=== PATIENT | male | born 1965 | race Caucasian/White ===

== ENCOUNTER → 2016-09-02 15:12 | Emergency (ER) | payer BC ==
[~2016-09-02 15:12] MED LIST: Iohexol 300* (CONTRAST) 10 ML SDV IV ONE; NS 0.9% 1000 ML* 1,000 ML IV ONE
[2016-09-02 17:45] LABS: Hematocrit 45 % (42-52); Hemoglobin 15.2 g/dl (14.0-18.0); Mean Corpuscular HGB Conc 34 g/dl (31-36); Mean Corpuscular Hemoglobin 31 pg (27-31); Mean Corpuscular Volume 90 fL (80-94); Mean Platelet Volume 8 um3 (7.4-10.4); Red Blood Count 4.96 10^6/ul (4.0-5.4); Red Cell Distribution Width 13 % (10.5-15); White Blood Count 8.1 10^3/ul (3.5-10.8)
[2016-09-02 18:01] LABS: Albumin 3.9 g/dL (3.2-5.2); BUN/Creatinine Ratio 17.3 (8-20); C Reactive Protein 5.71 mg/L (< 5.00); Calcium 9.3 mg/dL (8.6-10.3); EGFR African American 96.8 (>60); EGFR Non-African American 75.3 (>60); Globulin 3.1 g/dL (2-4); Potassium 3.8 mmol/L (3.5-5.0); Total Bilirubin 0.4 mg/dL (0.2-1.0)
--- NOTE | 2016-09-02 18:13 | RAD ---
INDICATION: Right testicular pain COMPARISON: None TECHNIQUE: Duplex interrogation of the scrotum was performed. FINDINGS: Testicles: The testicles are Normal in size and echogenicity. There is no evidence of testicular mass. There is symmetric flow on Doppler interrogation. There is no evidence of torsion.. The right testis measures 5.1 x 3.0 x 2.8 cm and the left 4.9 x 3.1 x 2.9 cm. There is symmetric flow on Doppler interrogation. Epididymides: There is a 0.9 cm left-sided epididymal cyst. The epididymides are normal in size. There is symmetric flow on Doppler interrogation. The right epididymal head measures 1.0 x 1.1 cm and the left 1.1 x 1.6 cm. Hydroceles: Small left-sided hydrocele. Varicoceles: None. Other: None. IMPRESSION: NO EVIDENCE OF TESTICULAR MASS OR TORSION.
--- NOTE | 2016-09-02 19:34 | RAD ---
INDICATION: Umbilical hernia. Pain. COMPARISON: CT June 09, 2015 TECHNIQUE: Axial source images were obtained from the hemidiaphragms to the symphysis pubis following administration of oral and intravenous contrast. 150 mL Omnipaque 300 was utilized. Coronal and sagittal reconstructed images were acquired. Lung bases: The lung bases are clear. Liver: The liver is mildly enlarged with findings of hepatic steatosis. There are no masses. There is no ductal dilatation. Gallbladder: There are no calcified gallstones. There is no evidence of wall thickening or pericholecystic fluid. Spleen: The spleen is normal in size. There are no masses. Pancreas: There is no focal pancreatic mass or ductal dilatation. Adrenal glands: There is no evidence of adrenal mass. Kidneys: The kidneys are normal in size and position. There are prompt nephrograms and there is prompt excretion bilaterally. There are no renal parenchymal masses. There is no evidence of nephrolithiasis. Adenopathy: There is no evidence of adenopathy by size criteria. Fluid collections: There are no free or localized fluid collections. Vessels:There are no significant atherosclerotic changes involving the aorta. There is no focal aneurysm. The iliac vessels are normal in caliber. The IVC appears normal. GI tract: There are no acute CT bowel findings. There is no obstruction. The stomach and small bowel appear unremarkable although there may be a tiny duodenal diverticulum. The lower GI tract is normal. The cecum, ileocecal valve, and terminal ileum appear normal. The appendix is visualized and appear normal. Pelvic organs: The prostate and seminal vesicles appear normal Bladder: There are no bladder masses. Abdominal and pelvic soft tissues: The extraperitoneal abdominal and pelvic soft tissues appear normal.. There is no evidence of ventral hernia. There is minor diastases of the lower rectus musculature. Osseous structures: There are no acute osseous findings. Other: None IMPRESSION: HEPATIC STEATOSIS. NO ACUTE CT FINDINGS.
[2016-09-02 20:53] VITALS: BP 125/85
--- NOTE | 2016-09-02 21:56 | ED ---
Stefanie Stratton Alfonso, scribed for Richi Ambrose MD on 09/02/16 at 1652 . Abdominal Pain/Male - HPI Summary HPI Summary: This patient is a 51 year old male presenting to [facility] c/o sharp abdominal pain for 3 months. The pain starts in his right testicle and radiates to his RLQ. He states the pain reminds me of that kidney stone in my 20s. Pt states there is a bulge in my abdomen when lying down. He reports having no BM in the past 3 days. He reports pain 7/10 in severity. Symptoms aggravated and alleviated by nothing. He reports nausea and constipation. He denies urinary symptoms, CVA pain, and testicular swelling. He denies recent trauma. Denies abdominal PSHx. - History of Current Complaint Chief Complaint: EDAbdPain Stated Complaint: ABD PAIN/LUMP Time Seen by Provider: 09/02/16 16:35 Hx Obtained From: Patient Onset/Duration: Sudden Onset, Lasting Weeks - 3 months, Still Present Timing: Constant Severity Initially: Moderate Severity Currently: Moderate Pain Intensity: 7 Pain Scale Used: 0-10 Numeric Location: Other - starts in his right testicle and radiates to his RLQ Radiates to: Other - starts in his right testicle and radiates to his RLQ Character: Sharp Aggravating Factor(s): Nothing Alleviating Factor(s): Nothing Associated Signs And Symptoms: Positive: Other - Positive nausea and constipation; negative urinary symptoms, CVA tenderness, and testicular swelling. - Allergies/Home Medications Allergies/Adverse Reactions: Allergies Allergy/AdvReac Type Severity Reaction Status Date / Time No Known Allergies Allergy Verified 05/28/12 08:19 PMH/Surg Hx/FS Hx/Imm Hx Endocrine/Hematology History: Denies: Hx Diabetes - PRE DIABETES Cardiovascular History: Reports: Hx Angina, Hx Hypertension, Other Cardiovascular Problems/Disorders Denies: Hx Congestive Heart Failure, Hx Coronary Artery Disease, Hx Myocardial Infarction Respiratory History: Reports: Hx Sleep Apnea - HAS CPAP, DOES NOT USE Denies: Hx Asthma, Hx Chronic Obstructive Pulmonary Disease (COPD) GI History: Reports: Hx Gastroesophageal Reflux Disease - ON DAILY OMEPRAZOLE History: Reports: Hx Kidney Stones - Hx OF 1980s Denies: Hx Dialysis, Hx Renal Disease Musculoskeletal History: Reports: Hx Arthritis - LEFT SHOULDER Sensory History: Reports: Hx Contacts or Glasses Denies: Hx Hearing Aid Opthamlomology History: Reports: Hx Contacts or Glasses - Surgical History Surgery Procedure, Year, and Place: 1979 LEFT SHOULDER [facility]. 2003 RT SHOULDER [facility]. 03/29/2011 & 04/06/11 BILATERAL CARPAL TUNNEL [facility] Hx Anesthesia Reactions: No Infectious Disease History: No Infectious Disease History: Denies: Traveled Outside the [place] in Last 30 Days - Family History Known Family History: Positive: Other - Cancer in father - Social History Alcohol Use: Rare Substance Use Type: Reports: None Smoking Status (MU): Former Smoker Review of Systems Negative: Fever Positive: Abdominal Pain - Sharp, Nausea, Other - Positive constipation; negative CVA pain Positive: no symptoms reported, other - Negative testicular swelling All Other Systems Reviewed And Are Negative: Yes Physical Exam - Summary Physical Exam Summary: The patient is obese in mild distress and in no acute pain. The skin is warm and dry and skin color reflects adequate perfusion. HEENT: The head is normocephalic and atraumatic. The pupils are equal and reactive. The conjunctivae are clear and without drainage. Nares are patent and without drainage. Mouth reveals moist mucous membranes and the throat is without erythema and exudate. The external ears are intact. The ear canals are patent and without drainage. The tympanic membranes are intact. Neck is supple with full range of motion and non-tender. There are no carotid bruits. There is no neck vein distension. Respiratory: Chest is non-tender. Lungs are clear to auscultation and breath sounds are symmetrical and equal. Cardiovascular: Heart is regular rate and rhythm. There is no murmur or rub auscultated. There is no peripheral edema and pulses are symmetrical and equal. Abdomen: Ventral hernia tender to palpation. Umbilical hernia tender to palpation. Does not appear incarcerated. There are normal bowel sounds heard in all four quadrants. No CVA tenderness. Male Genital Exam: Pt is circumcised. Epididymis of right testicle tender. No tenderness of left testicle. No testicular edema. Musculoskeletal: There is no back pain noted. Extremities are non-tender with full range of motion. There is good capillary refill. There is no peripheral edema or calf tenderness elicited. Pretibial edema. Neurological: Patient is alert and oriented to person, place and time. The patient has symmetrical motor strength in all four extremities. Cranial nerves are grossly intact. Deep tendon reflexes are symmetrical and equal in all four extremities. Psychiatric: The patient has an appropriate affect and does not exhibit any anxiety or depression. Triage Information Reviewed: Yes Vital Signs On Initial Exam: Initial Vitals Temp Pulse Resp BP Pulse Ox 97.8 F 90 16 160/100 97 09/02/16 15:14 09/02/16 15:14 09/02/16 15:14 09/02/16 15:14 09/02/16 15:14 Vital Signs Reviewed: Yes Diagnostics - Vital Signs Vital Signs Temp Pulse Resp BP Pulse Ox 09/02/16 15:14 97.8 F 90 16 160/100 97 - Laboratory Lab Results: Lab Results 09/02/16 09/02/16 09/02/16 Range/Units 17:35 17:35 17:35 WBC 8.1 (3.5-10.8) 10^3/ul RBC 4.96 (4.0-5.4) 10^6/ul Hgb 15.2 (14.0-18.0) g/dl Hct 45 (42-52) % MCV 90 (80-94) fL MCH 31 (27-31) pg MCHC 34 (31-36) g/dl RDW 13 (10.5-15) % Plt Count 212 (150-450) 10^3/ul MPV 8 (7.4-10.4) um3 Neut % (Auto) 52.7 (38-83) % Lymph % (Auto) 37.4 (25-47) % Garden % (Auto) 6.5 (1-9) % Eos % (Auto) 2.5 (0-6) % Baso % (Auto) 0.9 (0-2) % Absolute Neuts (auto) 4.3 (1.5-7.7) 10^3/ul Absolute Lymphs (auto) 3.0 (1.0-4.8) 10^3/ul Absolute Monos (auto) 0.5 (0-0.8) 10^3/ul Absolute Eos (auto) 0.2 (0-0.6) 10^3/ul Absolute Basos (auto) 0.1 (0-0.2) 10^3/ul Absolute Nucleated RBC 0.01 10^3/ul Nucleated RBC % 0.1 Sodium 138 (133-145) mmol/L Potassium 3.8 (3.5-5.0) mmol/L Chloride 105 (101-111) mmol/L Carbon Dioxide 27 (22-32) mmol/L Anion Gap 6 (2-11) mmol/L BUN 18 (6-24) mg/dL Creatinine 1.04 (0.67-1.17) mg/dL Est GFR ( Amer) 96.8 (>60) Est GFR (Non-Af Amer) 75.3 (>60) BUN/Creatinine Ratio 17.3 (8-20) Glucose 161 H (70-100) mg/dL Lactic Acid 0.8 (0.5-2.0) mmol/L Calcium 9.3 (8.6-10.3) mg/dL Total Bilirubin 0.40 (0.2-1.0) mg/dL AST 31 (13-39) U/L ALT 60 H (7-52) U/L Alkaline Phosphatase 67 (34-104) U/L Total Creatine Kinase 70 (10-223) U/L C-Reactive Protein 5.71 H (< 5.00) mg/L Total Protein 7.0 (6.4-8.9) g/dL Albumin 3.9 (3.2-5.2) g/dL Globulin 3.1 (2-4) g/dL Albumin/Globulin Ratio 1.3 (1-3) Amylase 38 (29-103) U/L Lipase 31 (11.0-82.0) U/L Result Diagrams: 09/02/16 17:35 09/02/16 17:35 Lab Statement: Any lab studies that have been ordered have been reviewed, and results considered in the medical decision making process. - CT CT A/P CT Interpretation Completed By: Radiologist - HEPATIC STEATOSIS. NO ACUTE CT FINDINGS. - Additional Comments Diagnostic Additional Comments: Testicular Ultrasound: NO EVIDENCE OF TESTICULAR MASS OR TORSION. Re-Evaluation - Re-Evaluation First Eval Re-Evaluation Time: 19:50 Change: Improved Comment: Patient reports they are feeling better. Discussed lab and imaging results. Pt understands and agrees with discharge home and PCP follow-up plan. Abdominal Pain Fem Course/Dx - Course Assessment/Plan: A 51 year old male presents to the ED with a CC of sharp abdominal pain for 3 months. The pain starts in his right testicle and radiates to his RLQ. He reports nausea and constipation. He denies urinary symptoms, CVA pain, and testicular swelling. Testicular Ultrasound reveals NO EVIDENCE OF TESTICULAR MASS OR TORSION. CT A/P reveals HEPATIC STEATOSIS and NO ACUTE CT FINDINGS. Patient will be discharged with follow up from PCP. Pt is agreeable with this plan. - Diagnoses Differential Diagnosis/HQI/PQRI: Other - incareated hernia, colon cancer, sbo, colitis Provider Diagnoses: Abdominal pain, Diastasis recti, Epididymal cyst Discharge - Discharge Plan Condition: Stable Disposition: HOME Patient Education Materials: Abdominal Pain (ED) Referrals: Che Alfredo, ADVERTISING ASSOCIATE [Primary Care Provider] - 1 Week The documentation as recorded by the Stefanie garrido Alfonso accurately reflects the service I personally performed and the decisions made by , Richi Ambrose MD.
== END | disposition home or self-care (01) ==
LOC: ED 15:12
DX: R10.31 Right lower quadrant pain (principal); L72.0 Epidermal cyst; Q79.59 Other congenital malformations of abdominal wall; Z87.891 Personal history of nicotine dependence
CPT/HCPCS: 36415; 74177; 76870; 80053; 82150; 82550; 83605; 83690; 85025; 86140; 96360; 99282; Q9967

== ENCOUNTER 2016-09-29 21:54 | Emergency (ER) | payer BC ==
[2016-09-29] MEDS ORDERED: Famotidine IV* 10 MG/ML 2 ML (20 mg) ONE (22:12)
[2016-09-29] MEDS ORDERED: methylPREDNISolone 125 MG* 2 ML VIAL ONE (22:12)
[2016-09-29] MEDS ORDERED: methylPREDNISolone 125 MG* 2 ML VIAL IV ONE (22:22)
[2016-09-29] MEDS ORDERED: Famotidine IV* 10 MG/ML 2 ML (20 mg) IV SLOW PU ONE (22:23)
[2016-09-29 22:30] LABS: Hematocrit 46 % (42-52); Hemoglobin 15.5 g/dl (14.0-18.0); Mean Corpuscular HGB Conc 34 g/dl (31-36); Mean Corpuscular Hemoglobin 30 pg (27-31); Mean Corpuscular Volume 90 fL (80-94); Mean Platelet Volume 8 um3 (7.4-10.4); Red Blood Count 5.13 10^6/ul (4.0-5.4); Red Cell Distribution Width 13 % (10.5-15); White Blood Count 7.6 10^3/ul (3.5-10.8)
[2016-09-29 22:41] LABS: Albumin 3.9 g/dL (3.2-5.2); BUN/Creatinine Ratio 17.5 (8-20); Calcium 9.2 mg/dL (8.6-10.3); EGFR African American 97.9 (>60); EGFR Non-African American 76.1 (>60); Potassium 3.7 mmol/L (3.5-5.0); Total Bilirubin 0.5 mg/dL (0.2-1.0); Total Protein 6.9 g/dL (6.4-8.9)
[2016-09-29 23:33] VITALS: BP 123/86
--- NOTE | 2016-09-29 23:38 | ED ---
Stefanie Stratton Alfonso, scribed for Vance Pearl on 09/29/16 at 2225 . Allergic Reaction/Systemic - HPI Summary HPI Summary: This patient is a 51 year old M [facility] daughter with a chief complaint of allergic reaction since 1900 today. He states I ate something and this is the third time it happened this year. Pt rates the pain 0 /10 in severity. Symptoms alleviated by 50 mg Benadryl taken CONTROL ENGINEER at 2030. Pt reports swollen lips, rash, and SOB. Pt denies pruritus, and CP. - History of Current Complaint Chief Complaint: EDAllergicReaction Hx Obtained From: Patient Onset/Duration: Sudden Onset, Started minutes ago - 1900 today, Still Present Timing: Constant Severity Initially: Mild Severity Currently: Mild Pain Intensity: 0 Pain Scale Used: 0-10 Numeric Location: Diffuse Aggravating Factor(s): Nothing Alleviating Factor(s): Other - 50 mg Benadryl taken CONTROL ENGINEER at 2030 Associated Signs And Symptoms: Positive: Other: - Pt reports swollen lips, rash , and SOB. Pt denies pruritus, and CP. - Allergies/Home Medications Allergies/Adverse Reactions: Allergies Allergy/AdvReac Type Severity Reaction Status Date / Time No Known Allergies Allergy Verified 05/28/12 08:19 PMH/Surg Hx/FS Hx/Imm Hx Endocrine/Hematology History: Denies: Hx Diabetes - PRE DIABETES Cardiovascular History: Reports: Hx Angina, Hx Hypertension, Other Cardiovascular Problems/Disorders Denies: Hx Congestive Heart Failure, Hx Coronary Artery Disease, Hx Myocardial Infarction Respiratory History: Reports: Hx Sleep Apnea - HAS CPAP, DOES NOT USE Denies: Hx Asthma, Hx Chronic Obstructive Pulmonary Disease (COPD) GI History: Reports: Hx Gastroesophageal Reflux Disease - ON DAILY OMEPRAZOLE History: Reports: Hx Kidney Stones - Hx OF Denies: Hx Dialysis, Hx Renal Disease Musculoskeletal History: Reports: Hx Arthritis - LEFT SHOULDER Sensory History: Reports: Hx Contacts or Glasses Denies: Hx Hearing Aid Opthamlomology History: Reports: Hx Contacts or Glasses - Surgical History Surgery Procedure, Year, and Place: 1979 LEFT SHOULDER [facility]. 2003 RT SHOULDER [facility]. 03/29/2011 & 04/06/11 BILATERAL CARPAL TUNNEL [facility] Hx Anesthesia Reactions: No Infectious Disease History: Denies: Traveled Outside the [place] in Last 30 Days - Family History Known Family History: Positive: Other - Cancer in father - Social History Alcohol Use: Rare Substance Use Type: Reports: None Smoking Status (MU): Former Smoker Review of Systems Positive: Other - Positive allergic reaction.. Negative: Fever Negative: Chest Pain Positive: Shortness Of Breath Positive: Other - Positive swollen lips Positive: Rash, Other - Negative pruritus. All Other Systems Reviewed And Are Negative: Yes Physical Exam Triage Information Reviewed: Yes Vital Signs On Initial Exam: Initial Vitals Temp Pulse Resp BP Pulse Ox 97.4 F 87 20 141/88 96 09/29/16 22:03 09/29/16 22:03 09/29/16 22:03 09/29/16 22:03 09/29/16 22:03 Vital Signs Reviewed: Yes Appearance: Positive: Well-Appearing, No Pain Distress Skin: Positive: Warm, Dry, Other - Generalized rash Head/Face: Positive: Normal Head/Face Inspection Eyes: Positive: EOMI, YESICA ENT: Positive: Normal ENT inspection Neck: Positive: Supple, Nontender Respiratory/Lung Sounds: Positive: Clear to Auscultation, Breath Sounds Present Cardiovascular: Positive: RRR, Pulses are Symmetrical in both Upper and Lower Extremities Abdomen Description: Positive: Nontender, Soft Bowel Sounds: Positive: Present Musculoskeletal: Positive: Normal, Strength/ROM Intact Neurological: Positive: Normal, Sensory/Motor Intact, Alert, Oriented to Person Place, Time Diagnostics - Vital Signs Vital Signs Temp Pulse Resp BP Pulse Ox 09/29/16 22:03 97.4 F 87 20 141/88 96 - Laboratory Result Diagrams: 09/29/16 22:11 09/29/16 22:11 Lab Statement: Any lab studies that have been ordered have been reviewed, and results considered in the medical decision making process. - EKG 2234 Cardiac Rate: NL - BPM 79 EKG Rhythm: Sinus Rhythm EKG Interpretation: NAC Allergic Reaction Course/Dx - Course Assessment/Plan: 51 year old M presents to the ED with a CC of allergic reaction since 1900 today. Symptoms alleviated by 50 mg Benadryl taken CONTROL ENGINEER at 2030. Pt reports swollen lips, rash, and SOB. Pt denies pruritus, and CP. An EKG reveals NSR. Patient given famotidine and methylprednisolone in the ED course. Patient will be discharged with follow up from PCP. Pt is agreeable with this plan. - Diagnoses Provider Diagnoses: Allergic reaction Discharge - Discharge Plan Condition: Stable Disposition: HOME Prescriptions: Methylprednisolone [Medrol Dosepak 4 MG*] 0 mg PO .SEE LEIGH INSTRUCTION #1 tab diPHENhydraMINE PO* [Benadryl PO 25 MG TAB*] 25 mg PO TID PRN #15 tab PRN Reason: Itching Patient Education Materials: General Allergic Reaction (ED) Referrals: Che Alfredo, WEBSPHERE MESSAGE BROKER DEVELOPER [Primary Care Provider] - 3 Days The documentation as recorded by the Stefanie garrido Alfonso accurately reflects the service I personally performed and the decisions made by Dae reveles Emmanuel.
== END 2016-09-29 23:39 | disposition home or self-care (01) ==
LOC: ED 21:54
DX: T78.40XA Allergy, unspecified, initial encounter (principal); R06.02 Shortness of breath; R21 Rash and other nonspecific skin eruption; Z87.891 Personal history of nicotine dependence
CPT/HCPCS: 36415; 80053; 84484; 85025; 93005; 96374; 96375; 99283; J2930

== ENCOUNTER 2017-10-08 07:07 | Inpatient (IN) | payer SELFPAY ==
--- NOTE | 2017-10-08 07:33 | ED ---
HPI Chest Pain - HPI Summary HPI Summary: The pt is a 52 y/o male [facility] c/o sharp CP since 1 week ago. He also notes SOB aggravated by exertion such as when he climbed a 10 ft ladder yesterday. As per nurse's notes, he also notes dizziness and headaches. These sx are similar to ones he had at the age of 47. He has a PMHx of DM for which he takes Metformin and HTN for which he also had medication. The pt. denies a stress test but reports cardiac catheterization 5 years ago. He does not smoke and consumes EtOH occasionally. FHx of AR (father). This is scribe Alycia Sanders documenting for attending Dr. Robert MD. I, Dr. German Jones MD , personally performed the services described in this documentation as scribed in my presence and it is both accurate and complete. - History of Current Complaint Chief Complaint: EDChestWallPain Time Seen by Provider: 10/08/17 07:18 Hx Obtained From: Patient Onset/Duration: Started Weeks Ago - 1 week, Still Present Timing: Lasting Weeks - 1 week Current Severity: Mild Pain Intensity: 3 Pain Scale Used: 0-10 Numeric Chest Pain Location: Discrete at: Chest Pain Radiates: Yes Chest Pain Radiates To:: Arm Character: Sharp/Stabbing Aggravating Factor(s): Exertion Alleviating Factor(s): Nothing Associated Signs and Symptoms: Positive: Headaches, Dizziness, Shortness of Breath Related History: Similar Episode/Dx as: - 5 years ago at age 47 - Allergy/Home Medications Allergies/Adverse Reactions: Allergies Allergy/AdvReac Type Severity Reaction Status Date / Time No Known Allergies Allergy Verified 10/08/17 07:30 Home Medications: Home Medications Meclizine TAB* [Antivert 12.5 TAB*] 25 mg PO TID PRN 10/08/17 [History Confirmed 10/08/17] metFORMIN* [Glucophage 1000 MG TAB *] 1,000 mg PO BID 10/08/17 [History Confirmed 10/08/17] PMH/Surg Hx/FS Hx/Imm Hx Previously Healthy: No Endocrine/Hematology History: Reports: Hx Diabetes - IDDM Cardiovascular History: Reports: Hx Angina, Hx Hypertension, Other Cardiovascular Problems/Disorders - Cathetirization performed 5 years ago Denies: Hx Congestive Heart Failure, Hx Coronary Artery Disease, Hx Myocardial Infarction Respiratory History: Reports: Hx Sleep Apnea - HAS CPAP, DOES NOT USE Denies: Hx Asthma, Hx Chronic Obstructive Pulmonary Disease (COPD) GI History: Reports: Hx Gastroesophageal Reflux Disease - ON DAILY OMEPRAZOLE History: Reports: Hx Kidney Stones - Hx OF Denies: Hx Dialysis, Hx Renal Disease Musculoskeletal History: Reports: Hx Arthritis - LEFT SHOULDER Sensory History: Reports: Hx Contacts or Glasses Denies: Hx Hearing Aid Opthamlomology History: Reports: Hx Contacts or Glasses - Surgical History Surgery Procedure, Year, and [facility] [place] RT [facility]. 03/29/2011 & 04/06/11 BILATERAL CARPAL TUNNEL [facility] Hx Anesthesia Reactions: No Infectious Disease History: No Infectious Disease History: Denies: Traveled Outside the US in Last 30 Days - Family History Known Family History: Positive: Cardiac Disease - AR, Other - Cancer in father - Social History Occupation: Employed Full-time Lives: With Family Alcohol Use: Rare Substance Use Type: Reports: None Smoking Status (MU): Former Smoker Review of Systems Positive: Chest Pain Positive: Shortness Of Breath Neurological: Other - Positive: Dizziness Positive: Headache All Other Systems Reviewed And Are Negative: Yes Physical Exam - Summary Physical Exam Summary: VITAL SIGNS: Reviewed. GENERAL: Patient is a well-developed and nourished male who is lying comfortable in the stretcher. Patient is not in any acute respiratory distress. HEAD AND FACE: No signs of trauma. No ecchymosis, hematomas or skull depressions. No sinus tenderness. EYES: PERRLA, EOMI x 2, No injected conjunctiva, no nystagmus. EARS: Hearing grossly intact. Ear canals and tympanic membranes are within normal limits. MOUTH: Oropharynx within normal limits. NECK: Supple, trachea is midline, no adenopathy, no JVD, no carotid bruit, no c- spine tenderness, neck with full ROM. CHEST: Symmetric, no tenderness at palpation LUNGS: Clear to auscultation bilaterally. No wheezing or crackles. CVS: Regular rate and rhythm, S1 and S2 present, no murmurs or gallops appreciated. ABDOMEN: Soft, non-tender. No signs of distention. No rebound no guarding, and no masses palpated. Bowel sounds are normal. EXTREMITIES: FROM in all major joints, no edema, no cyanosis or clubbing. NEURO: Alert and oriented x 3. No acute neurological deficits. Speech is normal and follows commands. SKIN: Dry and warm Vital Signs On Initial Exam: Initial Vitals Temp Pulse Resp BP Pulse Ox 98.3 F 88 16 143/87 97 10/08/17 07:15 10/08/17 07:15 10/08/17 07:15 10/08/17 07:15 10/08/17 07:15 Diagnostics - Vital Signs Vital Signs Temp Pulse Resp BP Pulse Ox 10/08/17 07:32 96 10/08/17 07:15 98.3 F 88 16 143/87 97 - Laboratory Result Diagrams: 10/08/17 07:27 10/08/17 07:27 Lab Statement: Any lab studies that have been ordered have been reviewed, and results considered in the medical decision making process. - Radiology CXR Radiology Interpretation Completed By: Radiologist - IMPRESSION: No radiographic evidence for acute cardiopulmonary abnormality on this portable chest x-ray. The ED Physician has reviewed this radiology report. - EKG 07:23 Cardiac Rate: NL - 84 bpm EKG Rhythm: Sinus Rhythm EKG Interpretation: No ST elevation, Normal sinus rythm, Normal axes Chest Pain Course/Dx - Course Assessment/Plan: This patient is a 53-year-old male who presents to the emergency department with a chief complaint of intermittent chest pain. The patient reports that he usually gets chest pain on exertion. The pain is a pressure pain acid with shortness of breath occasional nausea but no vomiting or dizziness. Physical sounds without any significant abnormality. EKG shows no ST elevations. Chest x-ray shows no acute pathology. In the ED course the patient was given aspirin and ibuprofen for headache. I believe the patient is having stable angina therefore he would benefit of a stress test. Therefore, I discussed my physical exam, findings and test results with Dr. Bailey from the hospitalist services who accepted the patient for admission. The patient is medically stable alert and oriented 3. - Chest Pain Differential Diagnosis/HQI/PQRI: Acute AR, ACS, Angina, CHF, Chest Wall, GI Disease, Lower Respiratory Infection - Diagnoses Provider Diagnoses: Angina of effort - Provider Notifications Discussed Care Of Patient With: Joy Bailey Time Discussed With Above Provider: 09:19 Instructed by Provider To: Admit As Inpatient Discharge - Sign-Out/Discharge Documenting (check all that apply): Patient Departure - Admit - Discharge Plan Condition: Stable Disposition: ADMITTED TO [facility] - Billing Disposition and Condition Condition: STABLE Disposition: Admitted to [facility]
[2017-10-08 07:43] LABS: ABS Basophils 0.1 10^3/ul (0-0.2); ABS Eosinophils 0.3 10^3/ul (0-0.6); ABS Lymphocytes 2.4 10^3/ul (1.0-4.8); ABS Monocytes 0.4 10^3/ul (0-0.8); ABS Neutrophils 4.3 10^3/ul (1.5-7.7); ABS Nucleated RBC 0 10^3/ul; Hematocrit 45 % (42-52); Lymphocyte % 31.6 % (25-47); Mean Corpuscular HGB Conc 36 g/dl (31-36); Mean Corpuscular Hemoglobin 31 pg (27-31); Mean Corpuscular Volume 87 fL (80-94); Mean Platelet Volume 7.6 um3 (7.4-10.4); Nucleated Red Blood Cells % 0.1; Platelet Count 220 10^3/ul (150-450); Red Cell Distribution Width 13 % (10.5-15); White Blood Count 7.5 10^3/ul (3.5-10.8)
[2017-10-08 07:55] LABS: EGFR Non-African American 71.8 (>60)
--- NOTE | 2017-10-08 07:57 | RAD ---
INDICATION: Chest pain COMPARISON: Most recent comparison chest x-rays dated May 04, 2012 TECHNIQUE: Single AP portable view of the chest was obtained. FINDINGS: Image quality is compromised due to the relative inferiority of a portable chest x-ray. The heart and mediastinum exhibit normal size and contour. The lungs are grossly clear. There is no evidence of a large pleural effusion. Visualized bones are normal for the patient's age. IMPRESSION: No radiographic evidence for acute cardiopulmonary abnormality on this portable chest x-ray.
[2017-10-08 09:17] LABS: Urine Appearance Clear; Urine Blood Negative (Negative); Urine Color Yellow; Urine Ketones Trace (Negative); Urine Protein Negative (Negative); Urine Specific Gravity 1.026 (1.010-1.030); Urine Urobilinogen Negative (Negative)
[2017-10-08] MEDS ORDERED: Ibuprofen TAB* 800 MG PO ONE (09:19)
[2017-10-08] MEDS ORDERED: Dextrose 50% Syringe 50 ML* 25 GM/50 ML SYRINGE IV PUSH PRN (11:21)
[2017-10-08] MEDS ORDERED: Meclizine TAB* 12.5 MG PO PRN (11:21)
[2017-10-08] MEDS: Insulin LISPRO* 1 UNITS UNIT SUBCUT SCH ×2 (12:40→17:05)
--- NOTE | 2017-10-08 15:26 | HP ---
CC: Che Alfredo NP * HISTORY AND PHYSICAL: DATE OF ADMISSION: 10/08/17. PRIMARY CARE PROVIDER: Che Alfredo NP CHIEF COMPLAINT: Chest pain. HISTORY OF PRESENT ILLNESS: Mr. Terry is a 52-year-old male who has a history of type 2 diabetes, very distant history of smoking, past history of hypertension, which has since resolved, who presents to the emergency room with complaints of chest pain. The patient states that over the last couple of weeks , he has developed symptoms of head pressure, dizziness, severe shortness of breath, and chest discomfort after exerting himself. The patient states that each time after he exerts himself, he develops these symptoms. He can sit down and rest and they will go away. Yesterday, he was at work performing physically difficult labor when he again developed nausea, dizziness, head pressure and chest discomfort. He describes the chest discomfort as a sensation that he just cannot catch his breath and his chest feels very tight. Yesterday, he climbed a 10 feet ladder and developed the exact same symptoms. He does state that he had a stress test and cardiac catheterization approximately 5 years ago. He states that it was done at [facility]. Results from that revealed via the stress test a small area of ischemia in the inferior wall. 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 PAST MEDICAL HISTORY: 1. Type 2 diabetes. 2. GERD. 3. Vertigo. PAST SURGICAL HISTORY: 1. Bilateral rotator cuff repairs. 2. Bilateral carpal tunnel repairs. 3. UPPP. MEDICATIONS: 1. Meclizine 25 mg p.o. t.i.d. p.r.n. dizziness. 2. Metformin 1000 mg p.o. b.i.d. 3. Omeprazole 20 mg p.o. daily. 4. Aspirin 81 mg p.o. daily. ALLERGIES: No known drug allergies. FAMILY HISTORY: Mom is living. She is 72 and healthy. Dad at the age of 61 of stomach cancer. SOCIAL HISTORY: The patient has a very distant smoking history, quitting at the age of 21. He does use approximately one can of chewing tobacco daily. He drinks alcohol rarely. 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 He is . He has two children. His , Emili is his healthcare proxy. REVIEW OF SYSTEMS: A complete 11-system review of systems was obtained. Pertinent positives and negatives are as per HPI and otherwise negative. PHYSICAL EXAMINATION GENERAL: The patient is a well-developed, middle-aged obese male sitting up in the bed, in no acute distress. VITAL SIGNS: Blood pressure 102/64, pulse 65, respirations 13, temp 98.3, O2 sat 95% on room air. HEENT: Pupils are equal and round. Extraocular muscles are intact. Oropharynx is clear. Oral mucosa is moist. NECK: There is no submandibular, cervical, or supraclavicular adenopathy. Thyroid is not enlarged. No thyroid nodules are noted. PULMONARY: Lungs are clear to auscultation bilaterally. CARDIAC: Normal S1, S2. Regular rate and rhythm. I do not appreciate any murmurs. There is no lower extremity edema. ABDOMEN: Bowel sounds are present. Abdomen is soft, nontender, and nondistended. MUSCULOSKELETAL: There is no cyanosis or clubbing of the digits. There is full active range of motion of all 4 extremities. NEURO: Cranial nerves II through XII are grossly intact. Sensation is intact to light touch throughout. Strength is 5/5 and symmetric in both upper and lower extremities bilaterally. PSYCH: The patient is alert. He is oriented x3. Affect appears appropriate. SKIN: Warm and dry. There are no rashes. LABORATORY DATA: WBC 7.5, hemoglobin 16.0, hematocrit 45, platelets 220. Sodium 138, potassium 3.8, chloride 104, CO2 25, BUN 21, creatinine 1.08, glucose 204. Hemoglobin A1c 6.6, lactic acid 1.0, calcium 9.6, magnesium 2.0, bilirubin 0.7, AST 18, ALT 28, alk phos 57, CPK 78, CK-MB is 0.9, troponin 0.00 x2. BNP 9, Albumin 4.1, TSH 1.78. Urinalysis reveals trace ketones, otherwise negative for signs of infection. EKG reveals normal sinus rhythm with possible ST elevation in the anterolateral leads, likely repolarization. Chest x-ray with no radiographic evidence for acute cardiopulmonary abnormality. ASSESSMENT AND PLAN: Mr. Terry is a 52-year-old male with a history of type 2 diabetes, obesity, past smoking history with ongoing chewing tobacco use, who presents to the emergency room with complaints of intermittent exertional chest pain. 1. Chest pain. The patient will be admitted and ruled out for an acute coronary syndrome. He will have a followup EKG obtained tomorrow morning. He is agreeable to staying under observation status to obtain an exercise nuclear stress test tomorrow. Lipid profile is pending. The patient's hemoglobin A1c is under fair control with A1c of 6.6%. The patient will continue on his aspirin. 2. Type 2 diabetes. The patient will have fingerstick q.a.c. with Lispro coverage. I will continue him on his usual dose of metformin for now. A1c is acceptable. 3. Gastroesophageal reflux disease. Continue omeprazole. 4. DVT prophylaxis: According to the Adult Thrombosis Prophylaxis Risk Factor Assessment Guide, the patient has a total risk factor score of 2, making him moderate risk. Ambulation will be utilized as DVT prophylaxis. 5. Code status is full. TIME SPENT: Sixty-five minutes was spent admitting this patient, of which greater than half was spent [id number] with the patient reviewing his history and performing physical exam. [id number]/[facility] #: [id number] DAVIN
[2017-10-08] MEDS: metFORMIN* 1,000 MG TAB PO SCH (20:31)
[2017-10-08] MEDS: Acetaminophen TAB* 325 MG PO PRN (20:31)
[2017-10-09] MEDS: metFORMIN* 1,000 MG TAB PO SCH ×2 (07:19→21:16)
[2017-10-09] MEDS: Insulin LISPRO* 1 UNITS UNIT SUBCUT SCH ×3 (07:19→17:31)
[2017-10-09] MEDS ORDERED: Regadenoson* 0.4 MG/5 ML SYRINGE ONE (09:20)
[2017-10-09] MEDS ORDERED: Aminophylline IV* 25 MG/ML 10 ML VIAL ONE (09:21)
[2017-10-09] MEDS: Aspirin EC TAB* 81 MG TAB.EC PO SCH (10:40)
[2017-10-09] MEDS: Omeprazole CAP* 20 MG PO SCH (10:40)
--- NOTE | 2017-10-09 10:56 | RAD ---
Edited for charges. INDICATION: Chest pain, shortness of breath. Diabetic. COMPARISON: May 05, 2012 TECHNIQUE: 10.600 mCi of Tc-99m Myoview were administered IV. SPECT images of the heart were obtained. Later on the same day. Under the direction of Dr. Childs, an exercise stress test was performed. The patient achieved a peak heart rate of 168 bpm, 86 % of the age- predicted maximum. Subsequently, the patient was given an IV injection of 26.300 mCi Tc- 99m Myoview. SPECT images of the heart were obtained and a gated wall motion study was performed. No CT for attenuation correction due to body habitus/limitation in range of motion of the arms. FINDINGS: Gated wall motion images were obtained at stress and demonstrate wall motion to be within normal limits. The calculated left ventricular ejection fraction is 68 % at stress. Estimated LEFT ventricular end diastolic volume is 72 mL. TID 0.85. Fixed perfusion defect involving the apical through basilar segments of the inferior wall is nonspecific and may represent diaphragmatic attenuation given male gender and obese body habitus. No additional myocardial perfusion defects evident at stress or rest. IMPRESSION: #. Limited exam due to absence of CT for attenuation correction. Nonspecific fixed perfusion defect involving the inferior wall is most suspicious for diaphragmatic attenuation given preserved wall motion. #. Normal range estimated LEFT ventricular ejection fraction and estimated end- diastolic volume. ASSESSMENT: Low risk based on nuclear portion. Based on imaging criteria from ACC/AHA 2002 Guideline Update for the Management of Patients With Chronic Stable Angina Table 23. Noninvasive Risk Stratification. MTDD
[2017-10-09] MEDS ORDERED: Perflutren Lipid Microsphere* 3 ML VIAL ONE (15:00)
[2017-10-09 16:14] LABS: EGFR Non-African American 73.4 (>60)
--- NOTE | 2017-10-09 17:12 | ECHO ---
Patient: AMBREEN WOLF [facility] Rec#: [id number] : 1965 Date: 10/09/2017 Age: 52y Height: 185 cm / 72.8 in Weight: 121 kg / 266.7 lbs Sex: M BSA: 2.43 Room#: 431 Admit Date#: 10/08/2017 Type: Inpatient Referring: Alcides Ashton Reading: Lzi Otero MD Test Lead Application Testing: Elke Conner RDCS CC: Che Alfredo NP Transthoracic Echocardiogram Indication: CVA BP: 123/80 HR: 75 Rhythm: NSR Findings History: DM,remote smoking history,HTN,GERD,obesity. Technical Comments: The study is technically limited due to patient body habitus. Definity used to enhance the images. The study is technically limited due to the patient's smoking history. Left Ventricle: The left ventricular chamber size is normal. Posterior wall hypertrophy is observed. There is normal left ventricular systolic function. The estimated ejection fraction is 60-65%. Abnormal left ventricular diastolic function is observed. Left Atrium: The left atrial chamber size is normal. Right Ventricle: The right ventricular cavity size is normal. The right ventricular global systolic function is normal. Right Atrium: The right atrial cavity size is normal. A patent foramen ovale is demonstrated by agitated contrast. Aortic Valve: The aortic valve is trileaflet. There is no evidence of aortic valve thickening. There is no evidence of aortic regurgitation. There is no evidence of aortic stenosis. Mitral Valve: The mitral valve leaflets are mildly thickened. There is no evidence of mitral regurgitation. There is no evidence of mitral stenosis. Tricuspid Valve: The tricuspid valve leaflets are normal. There is no evidence of tricuspid valve regurgitation. There is no tricuspid stenosis. Pulmonic Valve: The pulmonic valve appears normal. There is no evidence of pulmonic regurgitation. There is no pulmonic stenosis. Pericardium: A pericardial fat pad is visualized. Aorta: There is no dilatation of the ascending aorta. There is no dilatation of the aortic arch. There is no dilation of the aortic root. Pulmonary Artery: The main pulmonary artery is not well visualized. Contrast: Definity was used to optimize study. A total of 4 ml used. Intravenous contrast was used to enhance endocardial border definition. Conclusions There is normal left ventricular systolic function. Posterior wall hypertrophy is observed. The estimated ejection fraction is 60-65%. Abnormal left ventricular diastolic function is observed. The right ventricular global systolic function is normal. All valves appear structurally normal with good function. A patent foramen ovale is demonstrated by agitated contrast. No prior echo to compare. Measurements Name Value Normal Range RVIDd (AP) 2D 3 cm (0.9 - 2.6) RVDdMajor (2D) 3.5 cm (2.2 - 4.4) RAd ISD 4CH 4.8 cm (3.4 - 4.9) RA (A4C)W 3 cm (2.9 - 4.6) IVSd (2D) 1 cm (0.6 - 1) LVPWd (2D) 1.1 cm (0.6 - 1) LVIDd (2D) 3.8 cm (3.6 - 5.4) LVIDs (2D) 2.5 cm - LV FS (2D) 34 % (25 - 45) Aortic Annulus 2.6 cm (1.4 - 2.6) Ao root diameter (2D) 3.5 cm (2.1 - 3.5) Ascending Ao 3.2 cm (2.1 - 3.4) Aortic arch 2.5 cm (1.8 - 3.4) Descending Ao 0.8 cm - LA dimension (AP) 2D 3.5 cm (2.3 - 3.8) LAd ISD 4CH 4.2 cm (2.9 - 5.3) LA ISD 4CH W 3.2 cm (2.5 - 4.5) Name Value Normal Range LA ESV SP 4CH (A/L) 28 ml - LA ESV SP 2CH (A/L) 15 ml - LA ESV BP (A/L) index 12 ml/m2 - Name Value Normal Range MV E-wave Vmax 0.7 m/sec - MV deceleration time 218 msec - MV A-wave Vmax 0.8 m/sec - LV septal e' Vmax 0.07 m/sec - LV lateral e' Vmax 0.08 m/sec - LV E:e' septal ratio 10 ratio - LV E:e' lateral ratio 8.75 ratio - Name Value Normal Range AV Vmax 1.3 m/sec - AV VTI 24 cm - AV peak gradient 7 mmHg - AV mean gradient 4 mmHg - LVOT Vmax 1.2 m/sec - LVOT VTI 24 cm - LVOT peak gradient 5 mmHg - LVOT mean gradient 3 mmHg - Name Value Normal Range PV Vmax 0.7 m/sec - PV peak gradient 2 mmHg -
--- NOTE | 2017-10-09 17:20 | PN ---
Subjective Date of Service: 10/09/17 Interval History: Patient complains of feeling poorly. States that he has been having episodes of dizziness and lightheadedness at rest and with movement, particularly when standing after crouching. States he had no chest pain or shortness of breath with stress test today. Denies kita vertigo. States he ahs recently been feeling unsteady on his feet. Denies recent illness or changes in his medications. Patient states that he gets nauseated with his dizziness sensation. Denies F/C, N/V, abdominal pain, dysuria, rash or other pain. Today denies CP, SOB. Family History: Unchanged from Admission Social History: Unchanged from Admission Past Medical History: Unchanged from Admission Objective Active Medications: Acetaminophen (Tylenol Tab*) 650 mg PO Q6H PRN PRN Reason: FEVER/PAIN Last Admin: 10/08/17 20:31 Dose: 650 mg Aspirin (Aspirin Ec Tab*) 81 mg PO QAM [facility] Last Admin: 10/09/17 10:40 Dose: 81 mg Dextrose (D50w Syringe 50 Ml*) 12.5 gm IV PUSH .FOR FS < 60 - SS PRN PRN Reason: FS < 60 Insulin Human Lispro (Humalog*) 0 units SUBCUT [facility]; Protocol Last Admin: 10/09/17 11:57 Dose: Not Given Meclizine HCl (Antivert Tab*) 25 mg PO TID PRN PRN Reason: VERTIGO Metformin HCl (Glucophage*) 1,000 mg PO BID [facility] Last Admin: 10/09/17 07:19 Dose: Not Given Omeprazole (Prilosec Cap*) 20 mg PO DAILY@0730 [facility] Last Admin: 10/09/17 10:40 Dose: 20 mg Vital Signs - 8 hr 10/09/17 10/09/17 11:18 15:33 Temperature 97.6 F 98.1 F Pulse Rate 85 72 Respiratory 16 20 Rate Blood Pressure 123/80 120/73 (mmHg) O2 Sat by Pulse 98 96 Oximetry Oxygen Devices in Use Now: None Appearance: Patient is a 52yo male who appears stated age and is sitting in the bed in [facility]. Eyes: No Scleral Icterus, PERRLA Ears/Nose/Mouth/Throat: NL Teeth, Lips, Gums, Clear Oropharnyx, Mucous Membranes Moist Neck: NL Appearance and Movements; NL JVP, Trachea Midline Respiratory: Symmetrical Chest Expansion and Respiratory Effort, Clear to Auscultation Cardiovascular: NL Sounds; No Murmurs; No JVD, RRR, No Edema Abdominal: NL Sounds; No Tenderness; No Distention, No Hepatosplenomegaly Lymphatic: No Cervical Adenopathy Extremities: No Edema, No Clubbing, Cyanosis Skin: No Rash or Ulcers, No Nodules or Sclerosis Neurological: Alert and Oriented x 3, - - Dysesthesia on left lower face. Left sided facial droop with asymmetric furroing of the forehead. 4/5 strength in LUE and 5/5 otherwise. Cerebellar testing normal. No pronator drift. Romberg negative. Reflexes 1+ throughout. Result Diagrams: 10/08/17 07:27 10/09/17 15:37 Assess/Plan/Problems-Billing Assessment: Patient is a 52yo male with a PMH for DMII, HTN, here with episodes of CP, SOB wih exertion who had a negative stress test who also has been having episodes of dizziness and lightheadedness at rest with possible ataxia and has a previously undiagnosed facial droop and left arm weakness. - Patient Problems (1) Weakness Current Visit: Yes Status: Acute Code(s): R53.1 - WEAKNESS SNOMED Code(s) : 19147543 Comment: Possibly new onset. Unclear last known well. No possibility of TPA. Has been having dizziness for 2 weeks. Has also been having unsteadiness when walking. Nausea with dizziness. Does not describe vertigo sensation. New onset left sided weakness and dysesthesias of left side of face. MRI/MRA of brain pending. Echo demonstrates PFO, will get doppler of LE. Continue aspirin. Monitor telemetry. (2) HLD (hyperlipidemia) Current Visit: Yes Status: Acute Code(s): E78.5 - HYPERLIPIDEMIA, UNSPECIFIED SNOMED Code(s): 30337010 Comment: LDL 127 with HDL 33. Will start statin. (3) HTN (hypertension) Current Visit: Yes Status: Acute Code(s): I10 - ESSENTIAL (PRIMARY) HYPERTENSION SNOMED Code(s): 74886383 Comment: Previously on medication. Now normotensive. (4) DMII (diabetes mellitus, type 2) Current Visit: Yes Status: Acute Comment: Hemoglobin A1c 6.6%. Continue Metformin and SSI in hospital. (5) Chest pain Current Visit: Yes Status: Acute Code(s): R07.9 - CHEST PAIN, UNSPECIFIED SNOMED Code(s): 70993439 (6) DVT prophylaxis Current Visit: Yes Status: Acute Code(s): XLZ0251 - SNOMED Code(s): 931068056 (7) Full code status Current Visit: Yes Status: Acute Code(s): Z78.9 - OTHER SPECIFIED HEALTH STATUS SNOMED Code(s): 233850025 Status and Disposition: Inpatient.
[2017-10-09] MEDS ORDERED: LORazepam INJ* 2 MG/ML 1 ML VIAL IV PUSH PRN (18:19)
[2017-10-09] MEDS: Acetaminophen TAB* 325 MG PO PRN (19:12)
[2017-10-09] MEDS ORDERED: LORazepam INJ* 2 MG/ML 1 ML VIAL IV PUSH ONE (20:46)
[2017-10-09] MEDS ORDERED: Atorvastatin* 20 MG TAB PO SCH (21:00)
[2017-10-09] MEDS ORDERED: Gadobenate* (CONTRAST) 529 MG/ML 10 ML SDV IV SCH (21:33)
--- NOTE | 2017-10-10 07:48 | RAD ---
Indication: Left arm pain, dizziness and dyspnea. MRA of the brain was performed utilizing 3-D [id number] technique. Multiple maximum intensity projection images were obtained. The intracranial carotid arteries demonstrate no stenosis. No aneurysmal dilatation is noted. The anterior and middle cerebral arteries demonstrate normal bifurcation. There is no evidence of branch occlusion or aneurysmal dilatation. Vertebral arteries, basilar artery and posterior cerebral arteries demonstrate no branch occlusion or aneurysmal dilatation. IMPRESSION: Unremarkable MRA of the brain with no branch occlusion or aneurysmal dilatation.
--- NOTE | 2017-10-10 07:56 | RAD ---
Indication: Stroke, chest pain with nausea, dizziness and dyspnea. Image sequences: Sagittal and axial T1, axial T2, FLAIR, diffusion and susceptibility weighted images of the brain were obtained. Ventricular structures are midline. No midline shift is noted. The extra-axial spaces are unremarkable. No evidence of periventricular signal abnormality is noted in the FLAIR images. No restriction of diffusion is noted. There is no evidence of intracranial hemorrhage. Susceptibility weighted images demonstrate no susceptibility artifact. Motion artifact is noted however. The orbits are unremarkable. Of incidental note is a mucoperiosteal thickening in the ethmoid air cells and maxillary sinuses. No evidence of mastoid effusions are noted. IMPRESSION: No intracranial mass or hemorrhage is identified. Chronic sinus disease involving the maxillary sinuses and ethmoid air cells.
--- NOTE | 2017-10-10 08:07 | RAD ---
HISTORY: Chest pain and focal neurologic deficits COMPARISONS: None TECHNIQUE: The following sequences were obtained of the head and neck after localizing images: Stacked axial 2-D [id number] MR angiography of the neck; 3-D axial [id number] MR angiography of the carotid bifurcations. Multiple 3-D maximum intensity projection reconstructions are submitted for review. The patient received 20 mL MultiHance IV. FINDINGS: AORTA: The aortic arch is not well visualized secondary to technique and motion artifact. There is no obvious ostial or proximal stenosis of the cephalic great vessels. RIGHT VERTEBRAL ARTERY: The right vertebral artery is patent and without stenosis. LEFT VERTEBRAL ARTERY: The left vertebral artery is patent, without stenosis. DOMINANCE: Left side RIGHT COMMON CAROTID ARTERY: The right common carotid artery is patent. RIGHT INTERNAL CAROTID ARTERY: Patent without significant stenosis or focal abnormality. LEFT COMMON CAROTID ARTERY: The left common carotid artery is patent. LEFT INTERNAL CAROTID ARTERY: Patent without significant stenosis or focal abnormality. IMPRESSION: NORMAL MRA OF THE NECK WITHOUT EVIDENCE OF HEMODYNAMICALLY SIGNIFICANT STENOSIS OR OTHER FOCAL ABNORMALITY.
[2017-10-10] MEDS: Omeprazole CAP* 20 MG PO SCH (08:11)
[2017-10-10] MEDS: Insulin LISPRO* 1 UNITS UNIT SUBCUT SCH ×2 (08:12→11:13)
[2017-10-10] MEDS: Aspirin EC TAB* 81 MG TAB.EC PO SCH (08:44)
[2017-10-10] MEDS: metFORMIN* 1,000 MG TAB PO SCH (08:44)
[2017-10-10 11:36] VITALS: BP 127/74
--- NOTE | 2017-10-10 15:38 | CONS ---
CC: WHITNEY Bell.* NEUROLOGY CONSULTATION REPORT: DATE OF CONSULT: 10/10/17. CONSULTING PROVIDER: WHITNEY Bell. REASON FOR CONSULT: Lightheadedness, left facial droop. CHIEF COMPLAINT: Feeling light headed when bending forward. HISTORY OF PRESENT ILLNESS: Mr. Mohan Terry is a 52-year-old diabetic man who chews tobacco, who has a 3-4 week history of nonspecific symptoms that he described as intermittent nausea, lightheadedness when bending forward, intermittent blurry vision, and headaches. The patient presented to [facility] with shortness of breath and chest pain. He underwent nuclear stress test that was negative. There was no EKG changes or troponin elevation. The patient was still complaining of intermittent lightheadedness. He denied any vertigo. He has chronic tinnitus. He does report subtle left facial droop, but does not know exactly when it started. He stated that when he gets older, he feels that he is getting weaker all throughout, but mostly on the left side. He wakes up at night every 2 hours, is unaware why. He does still snore at night. He has surgery to fix his obstructive sleep apnea, but that surgery did not work as he is still snoring and feels tired throughout the day when he wakes up. He has daily occipital headaches. This is not new. He has had the same headache for the last 3 weeks. The headaches are pressure-like sensation and can last up to 4-5 hours. Aleve typically helps with the headache. The pain can shoot up to the left side of the head. He denied any acute visual change. He denied any slurred speech. He denied any focal paresis or paresthesias. PAST MEDICAL HISTORY: Diabetes for years, GERD, obstructive sleep apnea. PAST SURGICAL HISTORY: Bilateral shoulder surgery, carpal tunnel surgery bilaterally, throat surgery for sleep apnea. MEDICATIONS: Home medications are: 1. Omeprazole 20 mg p.o. q.a.m. 2. Aspirin 81 mg p.o. q.a.m. 3. Meclizine 25 mg p.o. 3 times daily as needed. 4. Metformin 1000 mg p.o. twice daily. ALLERGIES: No known drug allergies. FAMILY HISTORY: Father has cancer. Mother is alive and healthy. SOCIAL HISTORY: The patient is . He has 2 children who are healthy. 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 He is under financial distress. The patient also reports hating October and November months because that suggests that summer is nearing an end. He does not like the winter time. The patient does endorse feeling helpless and workless and this hospitalization is going to put him behind with his bills. 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 He is back driving a truck. He chews tobacco. He was a former smoker and he quit at age 21. He denied any significant alcohol use and drinks 1-2 beers a year. REVIEW OF SYSTEMS: Review of system was obtained and otherwise negative except for what was mentioned in the HPI. PHYSICAL EXAMINATION: Vitals: Temperature of 97.5, heart rate of 63, respiratory rate of 20, oxygen saturation 97%, blood pressure 123/73. General : Well- nourished, well-developed man, in no acute distress. Normocephalic, atraumatic without any obvious abnormality. He had no occipital notch tenderness. Conjunctivae/corneas are clear. Neck is supple and symmetrical with no carotid bruits. Lungs are clear to auscultation bilaterally with nonlabored breathing. Cardiovascular: Regular rate and rhythm with normal S1 and S2. Extremities: Limited range of motion of the shoulder regions bilaterally due to previous surgeries. Skin: No skin lesions or lacerations. Psych: Affect is flat and depressed mood. He denied any suicidal or homicidal ideation. Easy to establish rapport, but does answer with 1-2 word answers. Neurological Examination: Awake and alert, oriented to person, place, time and general circumstance. Speech and language including expression, naming, and repetition and comprehensions were assessed and found to be normal. Cranial Nerves: Normal confrontation bilaterally. Pupils are mid range and reactive to light. Normal consensual response. Extraocular muscles are intact. He has no ptosis. Sensation is intact on the forehead, cheeks and jaw region, except that he has a slight decrease sensation to light touch on the left feet 3 distribution. He has a very subtle facial droop on the left, but I wonder if this is due to asymmetrical facial hair/shaving. He did have a tight lid closure. He did have slight reduced wrinkling on the forehead with raising eyebrow. He is able to hear throughout the history of process. Symmetrical palatal elevation. He has normal strength against shoulder resistance. Tongue is symmetrical and midline with no atrophy or fasciculations. Motor: Right/ left, he has no abnormal movements. He has no pronator drift. Normal bulk and tone throughout. No fasciculation. 5/5 strength in upper and lower extremities. Reflexes: Right/left brachioradialis, 1/1 biceps, 1/1 triceps, 1/ 1 patellar, 1/1 ankle, 0/0 plantar flexor/flexes. Sensation is intact to light touch throughout. He has normal vibration and proprioception at the great toes. Coordination: Normal [id number] and rapid alternating movement. Gait and Station: Narrow based. Normal stance and gait. No ataxia. LABORATORY/IMAGING/ANOTHER DIAGNOSTIC TESTING: WBC 7.5, hemoglobin 16, hematocrit 45, platelets of 220. Sodium 139, potassium 4.0, chloride of 105, carbon dioxide 29, anion gap is 5, BUN is 18, creatinine is 1.06, glucose of 131 , lactate of 1.0, TSH of 1.78. Urinalysis showed no evidence of pyuria. The patient had complete workup with an MRI of the brain that showed no evidence of acute intracranial disease or stroke. There is chronic sinus disease involving the maxillary sinus and ethmoid air cells. He had a head MRA that was completed on 10/09/17, that was unremarkable with no evidence of branch occlusion or aneurysm. He had an MRA of the neck completed on 10/09/17, that showed normal MRA of the neck without evidence of hemodynamic significant stenosis or other focal abnormality. Transthoracic echo was completed on , that showed an ejection fraction of 60-65%. ASSESSMENT: Mr. Mohan Terry is a 52-year-old man with history of diabetes and untreated obstructive sleep apnea, who has nonspecific symptoms for over the last 4 weeks of intermittent lightheadedness, headaches, and generalized fatigue. On examination, the patient has no focal neurological deficits except there is a questionable very subtle left facial asymmetry that I wonder is related to symmetrical facial hair distribution. MRI of the brain without contrast did not show any evidence of demyelinating disease or vascular abnormality. Overall, I suspect the patient's symptoms are related to possible underlying mild diagnoses of depression. The fatigue could be related to untreated LEIDA. Lastly, the patient has tension headaches with a hint of occipital neuralgia on the left side. I recommend starting amitriptyline 10 mg at night time. I discussed the side effects with the patient, which include, but are not limited to drowsiness, weight gain, as well as urinary dysfunction. If he experiences any of these symptoms, I advised him to discontinue the medication immediately. I also recommend ordering vitamin B12, vitamin D, lyme testing for lyme disease, as well as angiotensin converting enzymes to rule out any secondary causes of all of his nonspecific complaints. Reassuringly, the patient did not have a stroke. I do not suspect this positional related lightheadedness are related to seizures. I encouraged the patient to stay hydrated especially during the summer months while he is working outdoors throughout the day. He should be evaluated by his PCP for CPAP or other treatment options for LEIDA. We will schedule the patient for a followup with Dr. Rafiq Keys in 4 weeks. I recommend returning to the ED if the patient develops any new acute neurological symptoms such as focal weakness, paresthesias, or new onset headaches. TIME SPENT: I spent a total of 70 minutes and greater than 50% of that was spent directly reviewing the medical chart, obtaining history, examining the patient, education and counseling, discussing the treatment plan as mentioned above. I discussed this case with Alcides Dee. [id number]/[facility] #: [id number] DAVIN
[2017-10-10] MEDS ORDERED: Amitriptyline TAB* 10 MG PO SCH (21:00)
--- NOTE | 2017-10-11 06:52 | DS ---
CC: Che Alfredo NP * DISCHARGE SUMMARY: DATE OF ADMISSION: 10/08/17 DATE OF DISCHARGE: 10/10/17 PRIMARY CARE PROVIDER: Che Alfredo NP MY ATTENDING WHILE IN THE HOSPITAL: Dr. Cecilio Palma.* (DICTATED BY WHITNEY MATSON) PRIMARY DISCHARGE DIAGNOSES: 1. Chest pain. 2. Dizziness. 3. Malaise. 4. Depression. SECONDARY DISCHARGE DIAGNOSES: 1. Type 2 diabetes. 2. Gastroesophageal reflux disease. 3. History of vertigo. STUDIES DONE WHILE IN THE HOSPITAL: Electrocardiogram from 10/08/17 shows normal sinus rhythm, early repolarization in V2, V3, V4 consistent with previous exam. Repeat EKG from 10/08/17 shows no significant changes. Studies show right axis deviation, incomplete right bundle branch block, no other abnormalities. Rate of 84, QTc of 436. Chest x-ray read as no radiographic evidence for acute cardiopulmonary abnormality and this was a portable chest x-ray. Nuclear medicine scan from 10/09/17 read as limited exam due to absence of CT for attenuation correction, nonspecific fixed perfusion defect involving the inferior wall is more suspicious for diaphragmatic attenuation given preserved wall motion. Normal range estimated left ventricular ejection fraction, estimated end diastolic volume, low risk. Brain MRI from 10/09/17 shows no intracranial mass or hemorrhage, chronic sinus disease involving the maxillary sinuses and ethmoid air cells. Transthoracic echocardiogram from 10/09/17 read as normal left ventricular systolic function, posterior wall hypertrophy is observed. Estimated ejection fraction is 60% to 65%, abnormal left ventricular diastolic function observed. The right ventricular global systolic function is normal. All valves appeared structurally normal and in good function. Patent foramen ovale is demonstrated agitated contrast. No prior echo to compare. Head MRA from 10/09/17 read as unremarkable MRA of the brain. Neck MRA from 10/09/17 read as normal MRA of the neck without evidence of hemodynamically significant stenosis or other focal abnormality. MEDICATIONS AT DISCHARGE: 1. Omeprazole 20 mg p.o. q.a.m. 2. Aspirin 81 mg p.o. q.a.m. 3. Meclizine 25 mg p.o. t.i.d. as needed. 4. Metformin 1000 mg p.o. b.i.d. 5. Tylenol 650 mg q.6 hours as needed. 6. Amitriptyline 10 mg p.o. at bedtime. 7. Lipitor 20 mg p.o. at bedtime. HOSPITAL COURSE: This is a brief summary of the patient's presentation. For more details, please see history and physical from Dr. Joy Bailey on . In brief, the patient is a 52-year-old male with past medical history significant for the above who presented to the emergency department with 2 weeks of head pressure, dizziness, and shortness of breath with chest discomfort after exerting himself. The patient states this was predictable and described the sensation in his chest as feeling very tight. The patient later described having his dizziness sensation at rest and having general sense of malaise for recent 2 weeks with muscle aches and just feeling very poorly. The patient states that standing up with a strong provocation for his dizziness to occur. The patient had a cardiac catheterization 5 years ago, which was normal as well as a stress test, which was normal. The patient was admitted to the hospital, had no recurrent chest pain. The patient had a nuclear medicine stress test, which was read as above and is essentially normal. 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 With concern for the patient's neurological deficits, the patient had studies as above to rule out CVA. The patient while in the hospital had significantly diminished dizziness having very few episodes with no chest pain, shortness of breath. The patient continued to generally feel poorly. The patient had no vital sign abnormalities. The patient had normal orthostatic vital signs. The patient was seen in consultation by Dr. Juanis Pickard of Neurology, who further elicited a history of headaches as well as insomnia and significant psychosocial issues that have been causing the patient significant stress. Dr. 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 Dr. Pickard believes that this was likely underlying aches and pains exacerbated by the patient's probable depression as well as tension headache disorder. The patient was started on amitriptyline 10 mg at nighttime. The patient had B12, vitamin D, and Lyme testing as well as angiotensin converting enzyme studies drawn while in the hospital. The patient was recommended for followup with Dr. Rafiq Keys in 4 weeks. The patient was stable now for discharge on . PHYSICAL EXAM: General: The patient is a 52-year-old male who appears his stated age and sitting comfortably in bed, in no acute distress. Vital Signs: At the time of evaluation, temperature 97.1, pulse rate 61, respiratory rate 20 , oxygen saturation 96% on room air, blood pressure 127/74. HEENT: Head, normocephalic, atraumatic. Sclerae anicteric. No conjunctival injection. Nasal mucosa moist. Oral mucosa moist. No pharyngeal erythema, discharge, or exudate. Neck: Supple, nontender, no lymphadenopathy. No carotid bruit auscultated. No JVD. Cardiac: Regular rate and rhythm. No clicks, murmurs, gallops, or rubs. Pulses are 2+ in bilateral dorsalis pedis, posterior tibialis , and radial areas. Respiratory: Clear to auscultation bilaterally. No wheezes , rales, or rhonchi. Good air exchange bilaterally. Abdomen: Soft, nontender , nondistended. Bowel sounds present. Normoactive in all 4 quadrants. No hepatosplenomegaly. No abdominal bruits auscultated. No JVD. Genitourinary: No suprapubic or CVA tenderness. Skin: Clean, dry, and intact. No rash. Neuro : Slight facial droop with asymmetric forehead wrinkling on the left side unchanged from previous exam, slight dysesthesia compared to the right side of face with testing of the mandibular area of the patient's face. 4/5 strength in the left upper extremity, 5/5 strength throughout otherwise. Normal reflexes , normal cerebellar testing. No nystagmus. No pronator drift. Negative Romberg. Psychiatric: Flat affect, otherwise pleasant and cooperative. DISCHARGE PLAN: The patient will be discharged to home. The patient should follow up with his primary care provider closely to assess for improvement in his nonspecific symptoms including dizziness, fatigue, insomnia, and headaches with introduction of his amitriptyline. Consideration for these headaches being caused by incidentally found chronic sinusitis on the patient's CT should also be considered and if his headaches continue, the antihistamine or anti- inflammatory therapy should be considered. The patient should follow up with Dr. Keys within 4 weeks for monitoring of his headache disorder. The patient had an elevated LDL of 127 on his lipid profile. Given the patient's other cardiovascular risk factors, his atherosclerotic vascular disease risk score for 10 years was 8.8. The patient was started on low-dose statin therapy. This should be monitored. The patient's hemoglobin A1c was 6.6 showing moderately good control of his hemoglobin only on metformin. The patient is otherwise reassuring cardiac testing and neurologic testing. The patient should have a consistent carbohydrate and heart-healthy diet and avoid caffeine. The patient should return to the hospital for alarming symptoms such as recurrent chest pain, shortness of breath, syncope, new onset of weakness, or other alarming symptoms. TIME SPENT: Approximately 75 minutes was spent on the discharge of this patient , 45 of which was spent [id number] with the patient obtaining history and physical and discussing treatment plan. WHITNEY MATSON [id number]/[facility] #: [id number] DAVIN
== END 2017-10-10 14:16 | disposition home or self-care (01) | DRG 103 ==
LOC: ED 07:07 → MEDTELE 09:32 → OBSVTOIN 10-10 07:49
PROVIDERS: ADMIT Hospitalist; ATTEND Internal Medicine
DX: G44.209 Tension-type headache, unspecified, not intractable (principal); Q21.1 Atrial septal defect; R42 Dizziness and giddiness; E11.9 Type 2 diabetes mellitus without complications; I10 Essential (primary) hypertension; K21.9 Gastro-esophageal reflux disease without esophagitis; F17.220 Nicotine dependence, chewing tobacco, uncomplicated; E66.9 Obesity, unspecified; G47.00 Insomnia, unspecified; G47.33 Obstructive sleep apnea (adult) (pediatric); R07.9 Chest pain, unspecified; R53.81 Other malaise; I45.10 Unspecified right bundle-branch block; Z79.84 Long term (current) use of oral hypoglycemic drugs; I69.398 Other sequelae of cerebral infarction; Z80.0 Family history of malignant neoplasm of digestive organs; Z68.35 Body mass index [BMI] 35.0-35.9, adult; Z82.49 Family history of ischemic heart disease and other diseases of the circulatory system; Z72.89 Other problems related to lifestyle; Z79.82 Long term (current) use of aspirin
CPT/HCPCS: 36415; 70544; 70549; 70551; 71045; 78452; 80048; 80053; 80061; 81003; 82164; 82550; 82553; 83036; 83605; 83735; 83880; 84443; 84484; 85025; 85730; 86618; 93005; 93017; 93306; 99284; 99406; A9270-GY; A9502; A9577; C8929; G0378; J0280; J2060; J2785